=== PATIENT | female | born 1935 | race Hispanic/Latino ===

== ENCOUNTER 2018-10-24 15:12 | Emergency (ER) | payer MEDICARE, OTHER ==
[~2018-10-24] VITALS: Ht 157.5 cm; Wt 88.0 kg
[~2018-10-24 15:12] MED LIST: DIOVAN HCTZ; METFORMIN 500 MG; SIMVASTATIN 40 MG; [UNRECOGNIZED DRUG - OTHER]
[2018-10-24] MEDS ORDERED: KETOROLAC TROMETHAMINE 60 MG/2 ML VIAL IM ONE (16:00)
[2018-10-24 16:13] VITALS: BP 172/74
== END 2018-10-24 16:22 | disposition home or self-care (01) ==
LOC: FSED 15:12
DX: M54.5 Low back pain (principal); M54.31 Sciatica, right side; I10 Essential (primary) hypertension; E78.00 Pure hypercholesterolemia, unspecified
CPT/HCPCS: 99282; J1885